=== PATIENT | female | born 1980 | race Caucasian/White ===

== ENCOUNTER → 2017-01-11 | Outpatient (CLI) | payer BC ==
[~2017-01-11] MED LIST: IBUP600 PO; OXYC1SOL5 PO; PREN1PAK2 PO; RANI150 PO
== END ==
LOC: CDED 09:50
PROVIDERS: ATTEND Obstetrics & Gynecology
DX: O24.419 Gestational diabetes mellitus in pregnancy, unspecified control (principal)
CPT/HCPCS: 97802

== ENCOUNTER 2017-03-13 14:28 | Inpatient (IN) | payer BC ==
[~2017-03-13] VITALS: Ht 165.1 cm; Wt 73.0 kg
[2017-03-13] VITALS (13 sets, daily range): BP systolic 94–107; BP diastolic 59–72; PULSE 81–109; RESP 18; TEMP 97.8–98.3
--- NOTE | 2017-03-13 15:23 | PD ---
HPI Chief Complaint Rupture membranes Date Seen: Mar 13, 2017 Time Seen: 15:20 Travel History International Travel<30 Days: No Contact w/Intl Traveler<30Days: No Known Affected Area: No History of Present Illness HPI 36-year-old who is at 37 weeks 3 days comes in with the complaint of rupture membranes at 11:30 this morning. She states the fluid appeared clear. She has a history of factor V Leiden mutation and has been maintained on Lovenox during the with a transition to heparin in the last month. She cannot remember her dose of heparin but her last injection occurred at 07 30 this morning. Patient was diagnosed with gestational diabetes and has required metformin 500 mg twice daily during the second half of her . She had 1 previous loss at 21 weeks gestation. Weeks Gestation: 37 (37.3) Para: 1 : 4 History Past Medical History Narrative Medical Factor V Leiden mutation Obstetric History Obstetric History 2 prior first trimester miscarriages followed by a 21 week loss Past Surgical History Narrative Surgical D&C 2 Family History Family History: Negative Social History Alcohol Use: No Tobacco Use: No Substance Abuse: No Allergies-Medications (Allergen,Severity, Reaction): Coded Allergies: morphine (Unverified Allergy, Severe, severe itching, 11/06/16) pt developed severe itching and reddness after receiving morphine Home Meds Active Scripts Oxycodone W/ Acetaminophen (Oxycodone/Acetaminophen 5-325 mg/5Ml) 5 mg/325 mg Tab, 1 TAB PO Q4H Y for PAIN SCALE 1 TO 4, #15 TAB 0 Refills Prov:Mine Martell MD 05/07/15 Ibuprofen (Motrin 600 Mg Tab) 600 Mg Tab, 600 MG PO Q6H Y for CRAMPING, #30 TAB 0 Refills Prov:Mine Martell MD 05/07/15 Ranitidine HCl (Zantac 150 Mg Tab) 150 Mg Tab, 150 MG PO BID, #60 TAB 5 Refills Prov:Remedios Fuller 03/07/15 W/O Vit A W/ Fe Carbo (Citranatal Dha) Dha [place], 1 TAB PO DAILY, #30 BOTTLE 11 Refills Prov:Remedios Fuller 03/07/15 Review of Systems Except as stated in HPI: all other systems reviewed are Neg Physical Exam Narrative GENERAL: Well-nourished, well-developed patient. SKIN: Warm and dry. HEAD: Normocephalic and atraumatic. EYES: No scleral icterus. No injection or drainage. ENT: No nasal drainage noted. Mucous membranes pink. Airway patent. NECK: Supple, trachea midline. No JVD. CARDIOVASCULAR: Regular rate and rhythm without murmurs, gallops, or rubs. RESPIRATORY: Breath sounds equal bilaterally. No accessory muscle use. ABDOMEN/GI: Abdomen soft, non-tender, bowel sounds present, no rebound, no guarding Gravid to [37-] weeks size Fundal Height: [-] GENITOURINARY: External Genitalia: intact and normal in appearance BUS glands: [Normal-] Cervix: [-Posterior] Dilatation: [3] Effacement: [-80] Station: [--2] Presentation: [Vertex-] Membranes: [ruptured] Uterine Contractions: [Absent-] FHT's: Category: [1-] Baseline: [140-] Reactive: [-] Moderate Variability: [-] Moderate Decels: [-] Absent EXTREMITIES: No cyanosis or edema. BACK: Nontender without obvious deformity. No CVA tenderness. NEUROLOGICAL: Awake and alert. Motor and sensory grossly within normal limits. Five out of 5 muscle strength in all muscle groups. Normal speech. Data Data Vital Signs Reviewed: Yes Group B Strep: Negative [facility] Medical Record Reviewed: Yes Plan 36-year-old with a history of factor V Leiden mutation and gestational diabetes requiring hypoglycemic agents here with premature rupture membranes at 37 weeks gestation Group B strep negative Diagnosis Diagnosis: Primary Impression: 37 weeks gestation of Additional Impressions: Premature rupture of membranes Factor V Leiden mutation complicating Prophylactic use of unfractionated heparin for venous thromboembolism Rosibel Thayer MD Mar 13, 2017 15:23
[2017-03-13] MEDS ORDERED: LACTATED RINGER'S 1000 ML INJ 1,000 ML IV SCH (15:24)
[2017-03-13] MEDS ORDERED: LACTATED RINGER'S 1000 ML INJ 1,000 ML IV PRN (15:24)
[2017-03-13] MEDS ORDERED: CITRIC ACID-SODIUM CITRATE LIQ 30 ML UDC PO SCH (15:30)
[2017-03-13] MEDS ORDERED: OXYTOCIN 30 UNITS-500ML PREMIX 500 ML IV ONE (15:30)
[2017-03-13] MEDS ORDERED: LIDOCAINE HCL 1% 50 ML VIAL INFIL PRN (15:30)
[2017-03-13] MEDS ORDERED: LIDOCAINE HCL 1% 50 ML VIAL I-DERMAL PRN (15:30)
[2017-03-13] MEDS ORDERED: SODIUM CHLORID 0.9% 500 ML INJ 500 ML IV PRN (15:30)
[2017-03-13] MEDS ORDERED: MINERAL OIL 10 ML VIAL TOPICAL PRN (15:30)
[2017-03-13] MEDS ORDERED: ONDANSETRON HCL 4 MG/2 ML VIAL IV PUSH PRN (15:30)
[2017-03-13] MEDS ORDERED: SODIUM CHLOR 0.9% 1000 ML INJ 1,000 ML IV PRN (15:44)
[2017-03-13 16:18] LABS: AUTOMATED NEUTROPHIL # 6.7 TH/MM3 (1.8-7.7); BASOPHIL % 0.4 % (0.0-2.0); EOSINOPHIL % 0.3 % (0.0-4.0); HEMATOCRIT 38.3 % (35.0-46.0); HEMO FLAGS DIFF FINAL; LYMPH % 23.9 % (9.0-44.0); LYMPHOCYTE # 2.3 TH/MM3 (1.0-4.8); MEAN CELL VOLUME 86.9 FL (80.0-100.0); MEAN CORPUSCULAR HEMOGLOBIN 30.3 PG (27.0-34.0); MEAN CORPUSCULAR HGB CONC 34.9 % (32.0-36.0); MONO % 6.2 % (0.0-8.0); NEUT % 69.2 % (16.0-70.0); PLATELET COUNT 209 TH/MM3 (150-450); RED CELL DISTRIBUTION WIDTH 15.1 % (11.6-17.2); WHITE BLOOD COUNT 9.7 TH/MM3 (4.0-11.0)
[2017-03-13 16:19] LABS: BLOOD, URINE NEG (NEG); COMMENT (UR) CATH-CULT NOT IND; CULTURE IF INDICATED CATH CULTURE NOT IND; GLUCOSE,URINE NEG (NEG); KETONE, URINE 10 mg/dL (NEG); NITRITE,URINE NEG (NEG); PH, URINE 5.5 (5.0-8.5); URINE COLOR LIGHT-YELLOW (YELLW/STRAW)
--- NOTE | 2017-03-13 17:29 | PD.LABORPN ---
Subjective Subjective feeling mild contractions Objective Objective not checked Was 3 cm on admission with postive amnisure strip category 1 Weeks Gestation: 37 (37.3) Gest Age Assessed Date: Mar 13, 2017 Gest Age Assessed Time: 17:27 Pt started active labor?: Yes Medical induction of labor?: No Artificial rupture of membrane: No Assessment/Plan Assessment and Plan 37 1/2 weeks with SROM and mlld UCs hx of second trimester (late) induction for multiple anomalies doing well Susannah Brian MD Mar 13, 2017 17:29
[2017-03-13] MEDS ORDERED: OXYTOCIN 30 UNITS-500ML PREMIX 500 ML IV SCH (17:30)
[2017-03-13 18:07] LABS: APTT (PATIENT) 25.9 SEC (24.3-30.1); INTERNATIONAL NORMALIZED RATIO 0.9 RATIO; PROTHROMBIN TIME - PATIENT 9.4 SEC (9.8-11.6)
[2017-03-13] MEDS ORDERED: METF500T PO (19:14)
[2017-03-14] VITALS (58 sets, daily range): BP systolic 82–107; BP diastolic 47–75; PULSE 60–134; RESP 16–20; TEMP 97.6–98.1; O2SAT 96
[2017-03-14] MEDS ORDERED: fentaNYL 2MCG-BUPIV 0.125% INJ 100 ML ONE (05:05)
[2017-03-14] MEDS ORDERED: DO NOT ADMINISTER ANTICOAGULANTS PRN (05:30)
[2017-03-14] MEDS ORDERED: fentaNYL 2MCG-BUPIV 0.125% 100 ML EPIDURAL SCH (05:30)
[2017-03-14] MEDS ORDERED: NO SYSTEM NARCOTICS PRN (05:30)
[2017-03-14] MEDS ORDERED: ePHEDrine/NS 25 MG/5 ML SYRINGE IV PUSH PRN (05:45)
--- NOTE | 2017-03-14 07:35 | PD.LABORPN ---
Subjective Subjective comfortable with epidural Objective Vital Signs Vital Signs Date Time Temp Pulse Resp B/P (MAP) Pulse Ox O2 Delivery O2 Flow Rate FiO2 03/14/17 07:18 97.7 18 03/14/17 07:15 102 107/66 (80) 03/14/17 07:00 74 93/62 (72) 03/14/17 06:45 93 93/66 (75) 03/14/17 06:30 74 95/59 (71) 03/14/17 06:15 97.6 03/14/17 06:15 60 96/65 (75) 03/14/17 06:09 18 03/14/17 06:00 68 105/59 (74) 03/14/17 06:00 64 03/14/17 05:55 60 03/14/17 05:50 72 03/14/17 05:45 72 92/56 (68) 03/14/17 05:45 75 03/14/17 05:42 73 102/56 (71) 03/14/17 05:40 67 03/14/17 05:39 67 94/59 (71) 03/14/17 05:36 81 96/59 (71) 03/14/17 05:35 74 03/14/17 05:33 71 93/53 (66) 03/14/17 05:30 78 97/57 (70) 03/14/17 05:30 80 03/14/17 05:27 77 101/61 (74) 03/14/17 05:25 70 03/14/17 05:24 74 105/72 (83) 03/14/17 05:20 76 03/14/17 05:15 82 03/14/17 04:30 71 98/64 (75) 03/14/17 04:15 18 03/14/17 04:15 97.8 03/14/17 04:00 67 97/62 (74) 03/14/17 03:30 68 97/64 (75) 03/14/17 03:15 16 03/14/17 03:00 76 99/68 (78) 03/14/17 02:30 69 101/64 (76) 03/14/17 02:15 98.1 18 03/14/17 02:00 79 100/75 (83) 03/14/17 01:30 71 89/51 (64) 03/14/17 01:02 75 18 103/71 (82) 03/14/17 01:00 83 03/14/17 00:30 91 104/64 (77) 03/14/17 00:00 74 102/65 (77) 03/14/17 00:00 98.0 18 Objective 5-6/80% -2 not well applied OP EFW 7 plevis adequate Weeks Gestation: 37 (37.3) Gest Age Assessed Date: Mar 13, 2017 Gest Age Assessed Time: 17:27 Pt started active labor?: Yes Medical induction of labor?: No Artificial rupture of membrane: No Assessment/Plan Assessment and Plan use peanut ball and sit up alternatively to promote rotation and descent anticipate Susannah Shetty MD Mar 14, 2017 07:35
[2017-03-14] MEDS ORDERED: OXYTOCIN 30 UNITS-500ML PREMIX 500 ML IV SCH (12:15)
[2017-03-14] MEDS ORDERED: ACETAMINOPHEN 325 MG TAB PO PRN (12:15)
[2017-03-14] MEDS ORDERED: ZOLPIDEM TARTRATE 5 MG TAB PO PRN (12:15)
[2017-03-14] MEDS ORDERED: ONDANSETRON ODT 4 MG TAB PO PRN (12:15)
[2017-03-14] MEDS ORDERED: ALUMINUM/MAGNESIUM/SIMETH 30 ML CUP PO PRN (12:15)
[2017-03-14] MEDS ORDERED: SODIUM CHLORIDE 0.9% FLUSH 10 ML FLUSH IV FLUSH PRN (12:15)
[2017-03-14] MEDS: IBUPROFEN 800 MG TAB PO PRN (15:50)
[2017-03-14] MEDS ORDERED: DIPHTH/TETANUS/ACEL PERTUSSIS (BOOSTER) 0.5 ML VIAL/PFS IM ONE (16:00)
[2017-03-14] MEDS ORDERED: MEASLES, MUMPS, RUBELLA VACCINE 0.5 ML VIAL SQ ONE (16:00)
[2017-03-14] MEDS: WITCH HAZEL 50%/GLYCERIN 12.5% 40 PAD JAR TOPICAL PRN (17:41)
[2017-03-14] MEDS: BENZOCAINE 20% TOPICAL SPRAY 60 ML CAN TOPICAL PRN (17:42)
[2017-03-14] MEDS ORDERED: SODIUM CHLORIDE 0.9% FLUSH 10 ML FLUSH IV FLUSH SCH (21:00)
[2017-03-14] MEDS: ACETAMINOPHEN/HYDROcodone 325 MG/5 MG TAB PO PRN (22:09)
[2017-03-14] MEDS: DOCUSATE SODIUM 50 MG/SENNA 8.6 MG TAB PO PRN (22:09)
[2017-03-15] MEDS: IBUPROFEN 800 MG TAB PO PRN ×3 (01:51→18:16)
[2017-03-15] MEDS: ACETAMINOPHEN/HYDROcodone 325 MG/5 MG TAB PO PRN ×3 (01:51→18:16)
--- NOTE | 2017-03-15 07:52 | HHI.OB ---
Subjective Post Day: 1 Remarks after pains and perineal laceration (first degree) bothersome but otherwise well plans to nurse Objective Vitals/I&O Vital Signs Date Time Temp Pulse Resp B/P (MAP) Pulse Ox O2 Delivery O2 Flow Rate FiO2 03/14/17 20:00 92/53 (66) 03/14/17 20:00 97.7 82 16 96 03/14/17 14:50 97.9 96 18 95/61 (72) 03/14/17 13:00 18 03/14/17 12:45 78 103/66 (78) 03/14/17 12:45 18 03/14/17 12:31 86 102/56 (71) 03/14/17 12:30 18 03/14/17 12:15 87 93/70 (78) 03/14/17 12:15 18 03/14/17 12:00 71 103/62 (76) 03/14/17 12:00 20 03/14/17 11:45 76 101/64 (76) 03/14/17 11:42 18 03/14/17 11:30 117 102/75 (84) 03/14/17 11:21 107 92/64 (73) 03/14/17 11:21 98.1 18 03/14/17 09:53 134 94/70 (78) 03/14/17 09:46 18 03/14/17 09:46 98.0 03/14/17 09:15 18 03/14/17 09:00 72 82/47 (59) 03/14/17 08:30 75 86/52 (63) 03/14/17 08:21 72 84/54 (64) 03/14/17 08:20 18 03/14/17 08:00 66 94/67 (76) Objective Remarks GENERAL: Well-nourished, well-developed patient. CARDIOVASCULAR: Regular rate and rhythm without murmurs, gallops, or rubs. RESPIRATORY: Breath sounds equal bilaterally. No accessory muscle use. ABDOMEN/GI: Abdomen soft, non-tender. Fundus: Firm, non-tender at umbilicus. GENITOURINARY: Light to moderate bleeding. EXTREMITIES: No cyanosis or edema, non-tender, without signs of DVT. Medications and IVs Current Medications Medications (Trade) Dose Ordered Sig/Brad Route Start Time Stop Time Status Last Admin Lactated Ringer's 1,000 ml @ 125 mls/hr Q8H IV 03/13/17 15:24 03/13/17 23:24 Lactated Ringer's 1,000 ml @ 3,000 mls/hr Q20M PRN IV 03/13/17 15:24 Sodium Chloride 500 ml @ 1,000 mls/hr ONCE PRN IV 03/13/17 15:30 Sodium Chloride 1,000 ml @ 100 mls/hr Q10H PRN IV 03/13/17 15:44 (Xylocaine 1% Inj (50 ml)) 0.1 ml UNSCH X1 PRN I-DERMAL 03/13/17 15:30 03/16/17 15:29 (Bicitra Liq) 30 ml CUSTODIAL OFFICER PO 03/13/17 15:30 03/17/17 15:29 03/13/17 18:44 (Xylocaine 1% Inj (50 ml)) 10 ml UNSCH X1 PRN INFIL 03/13/17 15:30 03/15/17 15:29 (Muri-Lube Oil) 10 ml UNSCH PRN TOPICAL 03/13/17 15:30 Fentanyl/ Bupivacaine HCl 100 ml @ 12 mls/hr TITRATE EPIDURAL 03/14/17 05:30 (NS Flush) 2 ml BID IV FLUSH 03/14/17 21:00 (NS Flush) 2 ml UNSCH PRN IV FLUSH 03/14/17 12:15 (Tylenol) 650 mg Q4H PRN PO 03/14/17 12:15 03/14/17 17:42 (Motrin) 800 mg Q8H PRN PO 03/14/17 12:15 03/15/17 01:51 (Americaine 20% Top Spr) 1 spray Q4H PRN TOPICAL 03/14/17 12:15 03/14/17 17:42 (Tucks Pads) 1 applic QID PRN TOPICAL 03/14/17 12:15 03/14/17 17:41 (Paz-Colace) 2 tab Q12H PRN PO 03/14/17 12:15 03/14/17 22:09 (Ambien) 5 mg HS PRN PO 03/14/17 12:15 (Mag-Al Plus Susp Liq) 15 ml Q8H PRN PO 03/14/17 12:15 (Zofran Odt) 4 mg Q6H PRN PO 03/14/17 12:15 ([place] 5-325 Mg) 1 tab Q4H PRN PO 03/14/17 18:15 03/15/17 01:51 Assessment/Plan Assessment and Plan Doing well no issues\ resourcing consultant home Saturday Susannah Brian MD Mar 15, 2017 07:52
[2017-03-15] MEDS ORDERED: IBUP1TAB7 PO (07:53)
--- NOTE | 2017-03-15 07:54 | HHI.DCPOC ---
Discharge Care Plan Report Symptoms to Your Doctor -Temperature above 100.5 degrees -Redness, of incision or excessive or foul smelling drainage -Unusual pain or calf pain -Increased vaginal bleeding -Painful or difficulty urinating -Feelings of extreme sadness or anxiety after 2 weeks Goals to Promote Your Health * To prevent worsening of your condition and complications * To maintain your health at the optimal level Directions to Meet Your Goals Take your medications as prescribed Follow your dietary instruction Follow activity as directed Ensure plenty of rest for recovery Drink fluids for hydration Keep your appointments as scheduled Take your immunizations and boosters as scheduled If your symptoms worsen call your PCP, if no PCP go to Urgent Care Center or Emergency Room Smoking is Dangerous to Your Health. Avoid second hand smoke Call the 24-hour crisis hotline for domestic abuse at Susannah Brian MD Mar 15, 2017 07:54
[2017-03-15 08:00] VITALS: BP 88/56; PULSE 69; RESP 16; TEMP 98; O2SAT 99
--- NOTE | 2017-03-15 08:07 | HHI.DCPOC ---
Discharge Care Plan Report Symptoms to Your Doctor -Temperature above 100.5 degrees -Redness, of incision or excessive or foul smelling drainage -Unusual pain or calf pain -Increased vaginal bleeding -Painful or difficulty urinating -Feelings of extreme sadness or anxiety after 2 weeks Goals to Promote Your Health * To prevent worsening of your condition and complications * To maintain your health at the optimal level Directions to Meet Your Goals Take your medications as prescribed Follow your dietary instruction Follow activity as directed Ensure plenty of rest for recovery Drink fluids for hydration Keep your appointments as scheduled Take your immunizations and boosters as scheduled If your symptoms worsen call your PCP, if no PCP go to Urgent Care Center or Emergency Room Smoking is Dangerous to Your Health. Avoid second hand smoke Call the 24-hour crisis hotline for domestic abuse at Susannah Brian MD Mar 15, 2017 08:06
[2017-03-15] MEDS ORDERED: ENOXAPARIN SODIUM 40 MG/0.4 ML SYRINGE SQ SCH (16:00)
--- NOTE | 2017-03-15 18:09 | PD.OB.DELI ---
Weeks gestation: 37 (37.3) Gest age assessed date: Mar 13, 2017 Gest age assessed time: 17:27 Pt started active labor?: Yes Active labor start date: Mar 14, 2017 Active labor start time: 15:00 Medical induction of labor?: No Artificial rupture of membrane: No Anesthesia: Epidural Episiotomy: None Vaginal Delivery: Normal Presentation: Occiput anterior Nuchal Cord: x1 Delayed cord clamping (45 sec): Yes Infant: Female Delivery date: Mar 14, 2017 Delivery time: 11:00 One Minute : 8 Five Minute : 9 Weight: 7 Placenta: Spontaneous delivery Laceration: 1 deg Repair: Chromic running Estimated blood loss: 300 Susannah Brian MD Mar 15, 2017 18:09
[2017-03-15] MEDS: DOCUSATE SODIUM 50 MG/SENNA 8.6 MG TAB PO PRN (18:21)
[2017-03-15 20:00] VITALS: BP 102/61; PULSE 68; RESP 20; TEMP 97.6; O2SAT 98
[2017-03-16] MEDS: IBUPROFEN 800 MG TAB PO PRN ×2 (02:22→10:10)
[2017-03-16] MEDS: DOCUSATE SODIUM 50 MG/SENNA 8.6 MG TAB PO PRN (06:10)
[2017-03-16] MEDS: ACETAMINOPHEN/HYDROcodone 325 MG/5 MG TAB PO PRN ×2 (06:10→10:09)
[2017-03-16 08:00] VITALS: BP 96/57; PULSE 63; RESP 18; TEMP 97.9; O2SAT 99
--- NOTE | 2017-03-16 12:47 | HHI.OB ---
Subjective Post Day: 2 Remarks Doing well Pain is controlled Baby is doing well Bleeding is normal. Objective Vitals/I&O Vital Signs Date Time Temp Pulse Resp B/P (MAP) Pulse Ox O2 Delivery O2 Flow Rate FiO2 03/16/17 08:00 97.9 63 18 96/57 (70) 99 03/15/17 20:00 97.6 03/15/17 20:00 68 20 102/61 (75) 98 Objective Remarks GENERAL: Well-nourished, well-developed patient. CARDIOVASCULAR: Regular rate and rhythm without murmurs, gallops, or rubs. RESPIRATORY: Breath sounds equal bilaterally. No accessory muscle use. ABDOMEN/GI: Abdomen soft, non-tender. Fundus: Firm, non-tender at umbilicus. GENITOURINARY: Light to moderate bleeding. EXTREMITIES: No cyanosis or edema, non-tender, without signs of DVT. Medications and IVs Current Medications Medications (Trade) Dose Ordered Sig/Brad Route Start Time Stop Time Status Last Admin Lactated Ringer's 1,000 ml @ 125 mls/hr Q8H IV 03/13/17 15:24 03/13/17 23:24 Lactated Ringer's 1,000 ml @ 3,000 mls/hr Q20M PRN IV 03/13/17 15:24 Sodium Chloride 500 ml @ 1,000 mls/hr ONCE PRN IV 03/13/17 15:30 Sodium Chloride 1,000 ml @ 100 mls/hr Q10H PRN IV 03/13/17 15:44 (Xylocaine 1% Inj (50 ml)) 0.1 ml UNSCH X1 PRN I-DERMAL 03/13/17 15:30 03/16/17 15:29 (Bicitra Liq) 30 ml SKIDWAY MAN PO 03/13/17 15:30 03/17/17 15:29 03/13/17 18:44 (Muri-Lube Oil) 10 ml UNSCH PRN TOPICAL 03/13/17 15:30 Fentanyl/ Bupivacaine HCl 100 ml @ 12 mls/hr TITRATE EPIDURAL 03/14/17 05:30 (NS Flush) 2 ml BID IV FLUSH 03/14/17 21:00 (NS Flush) 2 ml UNSCH PRN IV FLUSH 03/14/17 12:15 (Tylenol) 650 mg Q4H PRN PO 03/14/17 12:15 03/14/17 17:42 (Motrin) 800 mg Q8H PRN PO 03/14/17 12:15 03/16/17 10:10 (Americaine 20% Top Spr) 1 spray Q4H PRN TOPICAL 03/14/17 12:15 03/14/17 17:42 (Tucks Pads) 1 applic QID PRN TOPICAL 03/14/17 12:15 03/14/17 17:41 (Paz-Colace) 2 tab Q12H PRN PO 03/14/17 12:15 03/16/17 06:10 (Ambien) 5 mg HS PRN PO 03/14/17 12:15 (Mag-Al Plus Susp Liq) 15 ml Q8H PRN PO 03/14/17 12:15 (Zofran Odt) 4 mg Q6H PRN PO 03/14/17 12:15 ([place] 5-325 Mg) 1 tab Q4H PRN PO 03/14/17 18:15 03/16/17 10:09 (Lovenox Inj) 40 mg Q24H SQ 03/15/17 16:00 03/15/17 19:06 Assessment/Plan Assessment and Plan PPD#2 Doing well continue lovenox Home today Thomas Ramos MD Mar 16, 2017 12:47
[2017-03-16] MEDS: BENZOCAINE 20% TOPICAL SPRAY 60 ML CAN TOPICAL PRN (14:22)
[2017-03-16] MEDS: WITCH HAZEL 50%/GLYCERIN 12.5% 40 PAD JAR TOPICAL PRN (14:22)
== END 2017-03-16 14:27 | disposition home or self-care (01) | DRG 775 ==
LOC: HOBED 14:28 → H2EB 15:40 → H1EA 03-14 14:29
PROVIDERS: ADMIT Obstetrics & Gynecology; ATTEND Obstetrics & Gynecology
PROC: 3E0R3BZ Introduction of Anesthetic Agent into Spinal Canal, Percutaneous Approach (ICD-10-PCS; 2017-03-14)
PROC: 00HU33Z Insertion of Infusion Device into Spinal Canal, Percutaneous Approach (ICD-10-PCS; 2017-03-14)
PROC: 10E0XZZ Delivery of Products of Conception, External Approach (ICD-10-PCS; principal; 2017-03-15)
PROC: 0HQ9XZZ Repair Perineum Skin, External Approach (ICD-10-PCS; 2017-03-15)
DX: O42.02 Full-term premature rupture of membranes, onset of labor within 24 hours of rupture (principal); O99.12 Other diseases of the blood and blood-forming organs and certain disorders involving the immune mechanism complicating childbirth; D68.51 Activated protein C resistance; O24.425 Gestational diabetes mellitus in childbirth, controlled by oral hypoglycemic drugs; O70.0 First degree perineal laceration during delivery; Z37.0 Single live birth; Z3A.37 37 weeks gestation of pregnancy
CPT/HCPCS: 59025; 80307; 81001; 84112; 85025; 85610; 85730; 86900; 86901; 88307; J1650; J2590; J7120